=== PATIENT | female | born 1990 | race Hispanic/Latino ===

== ENCOUNTER 2022-07-13 11:23 | Emergency (ER) | payer BC ==
[2022-07-13 23:15] LABS: Chlamydia by PCR Not Detected (NotDetected); GC by PCR Not Detected (NotDetected)
== END 2022-07-13 12:39 | disposition short-term general hospital (02) ==
LOC: BURERS 11:23
DX: O20.9 Hemorrhage in early pregnancy, unspecified (principal); Z3A.01 Less than 8 weeks gestation of pregnancy
CPT/HCPCS: 36415; 84702; 87480; 87491; 87510; 87591; 87660; 99284